=== PATIENT | male | born 1985 | race Caucasian/White ===

== ENCOUNTER 2019-03-31 14:34 | Outpatient (CLI) | payer OTHER ==
[2019-03-31 16:04] VITALS: BP 108/60
--- NOTE | 2019-03-31 16:04 | SLEEP CARE CONSULTATION ---
Information from patient questionnaire entered by Florinda Nelson. I have reviewed and concur with the information entered by Florinda Nelson. This document represents the service I personally performed and the decisions made by me, Zuly Nicolas RN, MSN, [employer]. History of Present Illness Reason for Visit: New patient Chief Complaint: reports: Unrefreshed sleep, Snoring, Fatigue, Other (recently seen ENT who advised further evaluation for sleep disorderd breathing. ) Duration of Symptoms: 10-15 years Usual bedtime: 1999 Time it takes to fall asleep: under 30 minutes Snores at night: Yes (states he was observed snoring as a teen by sister and normal weight) Observed to quit breathing while asleep: No Sleeps alone due to snoring: No (but spouse will awaken to stop snoring) Number of times waking at night: 5-10 Reasons for waking at night: reports: Choking (rare), Snoring, Gasping for air (rare), Bathroom Toss, Turn, or Twitch while sleeping: Yes Recalls having dreams: Yes Usually gets out of bed at: 4am - 7am dependent upon working or day off Feels refreshed in the morning: No Morning headache: No Sleepy or fatigued during the day: Yes Ever fallen asleep while driving: No Takes day naps: Yes (2-3 hours 2-3 times a week - does not feel refreshed) Dreams during day naps: Yes Prior sleep studies: No - Parasomnia Symptoms Ever been unable to move upon waking from sleep: Yes (about every other month now, started in his teens) Walks in sleep: No Talks in sleep: Yes Ever acted out dreams in sleep: No Ever felt weak in the knees when startled or emotional: No Bothered by creepy, crawly, restless sensations in legs: No Problems with memory or concentration: Yes Subjective Initial [place] Sleepiness Scale score: 15 Past Medical History Past Medical History: reports: Anxiety, Depression, Other (nose surgery- repair of deviated septum 2013) Social History 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 Patient is and lives in [place]. Have you smoked in the past 12 months: No Alcohol use: Yes Alcohol amount and frequency: 1-2/week Caffeine use: Yes Caffeine amount and frequency: 1 cup/day Family History Family history of sleep disordered breathing: Yes Family Hx Sleep Apnea: Mother: Sleep apnea - Treated (a little overweight), Father: Sleep apnea - Untreated () Allergies and Home Medications Known drug allergies: No Home medication list reviewed: Yes Allergy and home medication list: Flonase nasal spray 2 sprays each nostril daily another nasal spray - prescription that he thinks is similar to Afrin. Review of Systems Cardiovascular: denies: high blood pressure, palpitations, chest pain, irregular heart rate or pulse, leg or foot swelling, have to sleep sitting up, other Respiratory: denies: shortness of breath, wheeze, sputum production, chronic co ugh, other Gastrointestinal: denies: heartburn, difficulty swallowing, nausea, vomitting, diarrhea, abdominal pain, other Urinary: denies: incontinence, frequency, urgency, impotence, other Neurological: denies: headaches, seizure, head trauma, disorientation, speech dysfunction, gait or balance problems, fainting or unconsciousness, other Psychiatric: reports: anxiety, depression (denies any thoughts of hurting self or others. ) Ear/Nose/Throat: reports: nasal congestion, sinus problems, dry mouth/throat (and throat is irritated a few times week), injury to nose (corrected surgically ), wisdom teeth removed. denies: nose bleeds, hoarseness, tonsillectomy Endocrine: reports: sluggishness. denies: thyroid disease, history of goiter, too hot or cold, excessive thirst, increased appetite, increased urination, unexplained weakness, other Musculoskeletal: reports: neck pain (chronic- xray completed). denies: joint pain, back pain, joint swelling, muscle pain or cramping, mobility problems, other Immunologic: reports: sneezing, allergies to food or environment (*environment). denies: rash, itching Physical Exam Blood Pressure: 108/60 Cuff size: long Heart Rate: 68 O2 Saturation: 98 Height: 5 ft 10.5 in Weight: 202 lb 12.8 oz Body Mass Index: 28.7 BMI Classification: Overweight Neck circumference: 15.25 Nostrils: patent to airflow Turbinates: normal (hard to visulize due to poor light of otoscope) Septum: midline Mouth and throat: narrow oropharynx Soft palate: long Hard palate: normal Uvula: normal Uvula visualization: 50% Mallampati Class II Tongue: normal in size Tonsils: small Chin and jaw: normal size and position Neck: normal w/o lymphadenopathy or thyromegaly Heart: regular rate and rhythm Lungs: clear bilaterally Abdomen: soft Extremities: no edema or clubbing Neurologic: intact (grossly intact ) Impression and Plan 1. Suspected Obstructive Sleep Apnea-Hypopnea Syndrome, as suggested by a history of loud and irregular snoring, gasping or choking in sleep, unrefreshed sleep, cognitive impairment, and excessive daytime sleepiness. Patient reports sleepiness symptoms no matter how much sleep he obtains or if sleep schedule regular or irregular. Naps taken are not refreshing. His mother and father both have sleep apnea. His mother is using CPAP and his father did use CPAP but is now . Narrow oropharynx and obesity are common predisposing factors for obstructive sleep apnea-hypopnea syndrome. Many symptoms of depression can overlap with obstructive sleep apnea. I recommend proceeding to polysomnography to confirm the diagnosis and to assess severity. If the patient has significant sleep disordered breathing, a manual CPAP titration study will also be performed to find the optimal treatment pressure. I informed the patient of what the sleep studies involve and after some discussion, obtained agreement to proceed. The pathophysiology of obstructive sleep apnea-hypopnea syndrome was discussed with the patient and health risks of cardiovascular and cerebrovascular disease if not treated. AASM brochure for obstructive sleep apnea-hypopnea syndrome given and reviewed. Risks of drowsy driving discussed in detail and patient advised to avoid long distance driving and to sample puller at the first sign of drowsiness. Patient agreed to plan. 2. Recurrent sleep paralysis, about 6 times a year that has occurred since he was a teen. He reports increased frequency of occurrence when he was in to monthly. These events generally occur after unusual intense dream and when he is in supine position. Per the international classification of sleep disorders, sleep paralysis is the "inability to perform voluntary movements at sleep onset or on waking from sleep in the absence of narcolepsy." This is presented as the inability to speak or move the limbs, trunk or head. The patient is conscious and has full recall of the incident. Respirations are generally not affected. The event can last seconds to minutes. Generally the event resolves spontaneously but can be also aborted by sensory stimulation such as touch or sound or patient making intense movements to move. Initially, anxiety can be present and hallucinatory experiences are also present in 25-75% of patients. There can be a familial form of sleep paralysis. Predisposing factors include sleep deprivation and irregular sleep - wake schedule. Precipitating factors in some studies show sleep paralysis occurs more frequently in supine sleep. Other factors noted on regression studies include an association with bipolar disorder, the use of anxiolytic medication and sleep related leg cramps. Onset is generally noted in adolescence and most events seem to be noted in the second and third decades but can continue later in life. If these episodes are elicited by awakening patient from sleep they appear to be from REM sleep and is an example of state dissociation of REM elements of sleep atonia persisting into wakefulness. Hallucinations may be present as well. Because sleep paralysis can also be a symptom of narcolepsy, I will confer with my medical scientist if an MSLT is indicated if polysomnography negative. * Schedule polysomnography. * Avoid long distance driving or driving when feeling sleepy. * Avoid alcohol, sedative and muscle relaxant around bedtime. * Attempt to lose weight. * Review instructions provided by trained office staff on how to prepare for the sleep study. * Confer with Dr. Vazquez * Return for follow-up after sleep study completed. * Addendum: I conferred with Dr. Vazquez 04/01/19. He advised MSLT to be completed for further evaluation of patient sleepiness if polysomnography is negative. I called patient and left a message to contact this office. I again called patient 04/02/19 1800 and able to clarify his sleep paralysis symptoms. No hallucinations just intense dreams associated with events. He was informed of recommendation of MSLT if negative polysomnography and agreed with plan. Time Spent with Patient (minutes): 40 I spent 100% of this visit face to face with the patient with greater than 50% of this was spent time counseling the patient and coordination of care.
== END 2019-03-31 14:35 | disposition home or self-care (01) ==
LOC: SC 14:34
PROVIDERS: ATTEND Nurse Practitioner Family
DX: G47.10 Hypersomnia, unspecified (principal); R06.83 Snoring; R41.89 Other symptoms and signs involving cognitive functions and awareness; G47.8 Other sleep disorders; G47.53 Recurrent isolated sleep paralysis
CPT/HCPCS: 99204; 99212

== ENCOUNTER 2019-04-15 19:15 | Outpatient (CLI) | payer OTHER | END 2019-04-15 19:16 | disposition home or self-care (01) | LOC: SC 19:15 | PROVIDERS: ATTEND Internal Medicine Pulmonary Disease | DX: G47.10 Hypersomnia, unspecified (principal); R53.83 Other fatigue; G47.8 Other sleep disorders; R06.83 Snoring | CPT/HCPCS: 95810 ==

== ENCOUNTER 2019-04-28 14:47 | Outpatient (CLI) | payer OTHER ==
[2019-04-28 15:40] VITALS: BP 120/70
--- NOTE | 2019-04-28 15:40 | SLEEP CARE CONSULTATION ---
Information from patient questionnaire entered by Amy Belle. I have reviewed and concur with the information entered by Amy Belle. This document represents the service I personally performed and the decisions made by me, Zuly Nicolas, RN, MSN, [employer]. History of Present Illness Initial [place] Sleepiness Scale score: 15 Current [place] Sleepiness Scale score: 13 Additional HPI information: MARKEL MANRIQUE returns for follow up and results of the recently performed polysomnography. I explained the pathophysiology behind obstructive sleep apnea. Patient does not have sleep apnea and was advised how weight gain could increase the risk of developing sleep apnea in the future. I strongly encouraged the patient to lose some weight. Patient has light snoring. Snoring can be reduced by weight loss. Weight loss is best achieved with diet consult. Patient instructed to contact PCP for referral if unable to achieve weight loss goals. 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 Snoring can also be treated with an oral appliance from a dentist. Advised to check insurance coverage. In addition, an ENT evaluation can be do to see if other treatment is indicated. Since he intermittently has difficulty breathing through his nose, an ENT referral is advisable. Patient counseled not drink alcohol less than 4 hours before bedtime as it can increase snoring and apnea. Patient does not drink alcohol. Patient was cautioned about risks of drowsy driving until sleepiness symptoms resolve. Patient denies drowsy driving. [facility] patient education on snoring and sleep apnea given and reviewed. Review of sleep history: Patient states he did not sleep well at polysomnography and is not a good representation of his sleep. Patient states his spouse states snoring is loud enough supine to awaken her but not present on his side or prone. He feels he finds it hard to sleep on his back as not as comfortable. He rolls to his back when sleeping and will be awakened by spouse. ] Sleep Study - Results Polysomnography/Home Sleep Study results: The quality of the study is good. The patient had reduced sleep efficiency as the patient was awake almost throughout the first half of the night. The sleep architecture was relatively normal considering the first-night effect. Respiratory monitoring showed no significant sleep disordered breathing (AHI = 1.4) or hypoxia (chaya oxygen saturation of 93%). The patient slept adequately in supine position (supine AHI = 2.7; non-supine = 1.12). Snore was rare and light in intensity. There was no significant periodic leg movement of sleep. Cardiac rhythm was normal sinus rhythm without significant arrhythmia. No abnormal behavior (parasomnia) observed during the night. Allergies and Home Medications Home medication list reviewed: Yes (none) Review of Systems Review of systems same as previous: Yes Physical Exam Blood Pressure: 120/70 Cuff size: long Heart Rate: 90 O2 Saturation: 98 Height: 5 ft 10.5 in Weight: 202 lb 6.4 oz Body Mass Index: 28.6 BMI Classification: Overweight Impression and Plan Suspected sleep apnea, patient did not sleep well the night of sleep study. He felt he was awake most of night and sleep study report showed reduced sleep efficiency. Snoring only was noted on sleep study. He continues to wake 10-15 times a night for unknown reason. No change in weight. He continues to snore loud enough to awaken spouse though very light at this study and rare in occu rrence. He continues to have sleepiness symptoms. Thus I will order a home sleep study as patient felt anxious at sleep study with difficulty initiating or maintaining sleep. The home sleep study will be another measure to rule out if sleep disorderd breathing is a cause of his sleepiness symptoms. He is to keep his sleep schedule regular so can sleep better at night. * Schedule home sleep study. * Attempt to lose weight * Avoid alcohol consumption near bedtime * The patient is cautioned about driving until sleepiness is completely resolved. * Return after sleep study to review results. Time Spent with Patient (minutes): 35 I spent 100% of this visit face to face with the patient with greater than 50% of this was spent time counseling the patient and coordination of care.
== END 2019-04-28 14:48 | disposition home or self-care (01) ==
LOC: SC 14:47
PROVIDERS: ATTEND Nurse Practitioner Family
DX: G47.10 Hypersomnia, unspecified (principal); R06.83 Snoring; E66.3 Overweight; Z68.28 Body mass index [BMI] 28.0-28.9, adult
CPT/HCPCS: 99212; 99214

== ENCOUNTER 2019-05-12 19:30 | Outpatient (CLI) | payer OTHER | END 2019-05-12 23:59 | LOC: SC 19:30 | PROVIDERS: ATTEND Internal Medicine Pulmonary Disease | DX: G47.10 Hypersomnia, unspecified (principal); R06.83 Snoring; R06.81 Apnea, not elsewhere classified; G47.8 Other sleep disorders | CPT/HCPCS: 95806 ==

== ENCOUNTER 2019-05-27 12:42 | Outpatient (CLI) | payer OTHER ==
--- NOTE | 2019-05-27 17:12 | XRAY Report ---
Reason: NECK PAIN Procedure Date: 05/27/2019 Accession Number: [id number] / [id number] Procedure: XR - Cervical Spine 2 View CPT Code: Final Report FULL RESULT: EXAM: CERVICAL SPINE RADIOGRAPHY EXAM DATE: 05/27/2019 12:58 PM. CLINICAL HISTORY: NECK PAIN. COMPARISONS: Accompanying plain film evaluation right shoulder. TECHNIQUE: 3 views. Findings: Relevant images are indicated (image number, series number). 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 There is straightening, slight reversal of the normal cervical lordotic curve. Mild intervertebral disk space narrowing present C4-C5 level. No listhesis. No prevertebral soft tissue swelling. Upper airway is patent. AP imaging demonstrates 6.8 degree cervical dextroconvexity. Minimal/mild multilevel posterior facet degenerative joint space narrowing present. Upper airway appears patent. There are no suspicious bony lesions. Limited evaluation lung apices are unremarkable. Impressions: 1. 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 No suspicious bony lesions. Straightening, slight reversal of the normal cervical lordotic curve. 2. At least a 6.8 degree cervical external convexity present. 3. Minimal/mild multilevel posterior facet degenerative changes. 4. No acute findings, no suspicious bony lesions. [facility]
--- NOTE | 2019-05-28 01:28 | XRAY Report ---
Reason: NECK PAIN Procedure Date: 05/27/2019 Accession Number: [id number] / [id number] Procedure: XR - Shoulder 3 View RT CPT Code: Final Report FULL RESULT: EXAM: RIGHT SHOULDER RADIOGRAPHY EXAM DATE: 05/27/2019 12:58 PM. CLINICAL HISTORY: NECK PAIN. COMPARISON: None. TECHNIQUE: 3 views. FINDINGS: Bones: Normal. No fracture or bone lesion. Joints: The glenohumeral and acromioclavicular joints are normal. Soft tissues: The visualized hemithorax is unremarkable. No soft tissue swelling. IMPRESSION: Normal shoulder radiography. [facility]
== END 2019-05-27 12:43 | disposition home or self-care (01) ==
LOC: DI 12:42
PROVIDERS: ATTEND Physician Assistant
DX: M47.812 Spondylosis without myelopathy or radiculopathy, cervical region (principal); M41.9 Scoliosis, unspecified; M25.511 Pain in right shoulder
CPT/HCPCS: 72040

== ENCOUNTER 2019-06-24 16:59 | Outpatient (CLI) | payer OTHER ==
--- NOTE | 2019-06-30 13:10 | SLEEP CARE CONSULTATION ---
Information from patient questionnaire entered by Florinda Nelson. I have reviewed and concur with the information entered by Florinda Nelson. This document represents the service I personally performed and the decisions made by me, Cade Vaqzuez MD, [facility]. History of Present Illness Service Date and Time: 06/24/20191658 Initial [place] Sleepiness Scale score: 15 Additional HPI information: To minimize the risk of COVID-19 exposure, the patient has requested and consented to this video telemedicine visit. The patient also agrees to having his insurance billed. HPI: Mr. Coles was called for a follow up of the home sleep apnea test (HSAT) he had on 05/12/2019. The test showed that no significant sleep disordered breathing or hypoxemia. The patient slept in both supine and non-supine positions. Heart rate was within normal limits. The patient was informed of these findings. I explained to him that there was no significant sleep disordered breathing. He continues to complain of loud snore. Allergies and Home Medications Drug allergies reviewed: Yes Home medication list reviewed: Yes Review of Systems Review of systems same as previous: Yes Physical Exam Height: 5 ft 10.5 in Impression and Plan IMPRESSION: 1. Primary Snore (ICD-10 R06.83), loud but without significant sleep disordered breathing. He will return to discuss treatment with his ENT physician who referred him for the sleep studies in the first place. He would also like to consider the oral appliance therapy. PLAN: 1. Follow up with his ENT physician at the [facility]. 2. Return to the sleep clinic on as needed basis. Visit Type: Telehealth Video Video Type: [facility] Patient Location: Home Location of Provider: Home Patient agrees and consents to this telehealth visit type: Yes Patient agrees to have their insurance billed: Yes Time Spent with Patient (minutes): 15 Provider Statement: I spent 100% of the Telehealth Video Call with the patient with greater than 50% spent counseling the patient and coordination of care.
== END 2019-06-24 17:00 | disposition home or self-care (01) ==
LOC: SC 16:59
PROVIDERS: ATTEND Internal Medicine Pulmonary Disease
DX: R06.83 Snoring (principal); R06.81 Apnea, not elsewhere classified; G47.10 Hypersomnia, unspecified; G47.8 Other sleep disorders